=== PATIENT | female | born 1970 | race Caucasian/White ===

== ENCOUNTER 2018-11-04 11:33 | Outpatient (CLI) | payer OTHER | END 2018-11-04 11:34 | disposition home or self-care (01) | LOC: C.MAMMO 11:33 | DX: Z12.31 Encounter for screening mammogram for malignant neoplasm of breast (principal) ==

== ENCOUNTER 2018-11-11 08:02 | Day surgery (SDC) | payer OTHER | END 2018-11-11 11:40 | disposition home or self-care (01) | LOC: C.ENDO 08:02 | DX: K30 Functional dyspepsia (principal) ==